=== PATIENT | male | born 1955 | race Caucasian/White ===

== ENCOUNTER 2023-10-30 08:58 | Outpatient (CLI) | payer MEDICARE, BC, SELFPAY | END 2023-10-30 08:59 | disposition home or self-care (01) | PROVIDERS: PCP Family Medicine; Visit Provider Family Medicine | DX: E78.2 Mixed hyperlipidemia (principal); N40.0 Benign prostatic hyperplasia without lower urinary tract symptoms; M17.12 Unilateral primary osteoarthritis, left knee; Z12.5 Encounter for screening for malignant neoplasm of prostate | CPT/HCPCS: 80048; 80061; 84460; G0103 ==

== ENCOUNTER 2024-06-23 08:18 | Outpatient (CLI) | payer MEDICARE, BC, SELFPAY ==
--- NOTE | 2024-06-23 09:00 | CRLHL7_ITS ---
For Patients: As a result of the Century Cures Act, medical imaging exams and procedure reports are released immediately into your electronic medical record. You may view this report before your referring provider. If you have questions, please contact your health care provider. INDICATION: UTI, HEMATURIA TECHNIQUE: CT abdomen and pelvis urogram without and with 100 cc Isovue 370 IV contrast. Contrast images were obtained in the nephrographic and delayed phases. COMPARISON: None. FINDINGS: KIDNEYS: The unenhanced images demonstrate no kidney or ureteral stones. The kidneys are normal in caliber and demonstrate normal uptake and excretion of IV contrast. No masses. The renal collecting systems and ureters are symmetrical, normal in caliber, and without evidence of mass or filling defect. URINARY BLADDER: Bladder wall is mildly trabeculated. Prostate gland appears to be present with lobular mass effect upon the inferior bladder along with calcifications. No bladder stones. OTHER: GI tract is normal in caliber and appearance. Multiple sub cm cysts are present within the liver. No calcified gallstones. Spleen, pancreas, and adrenal glands are normal. No mass or adenopathy. Facet degeneration lower lumbar spine. IMPRESSION: 1. No renal, ureteral or bladder stone. 2. Mild bladder wall trabeculation. Prostate gland is present with lobular mass effect upon the inferior bladder. Please note that all CT scans at this facility use dose modulation, iterative reconstruction, and/or weight-based dosing when appropriate to reduce radiation dose to as low as reasonably achievable. Dictated by Ramesh Pride MD @ 06/23/2024 10:48:42 AM (Electronically Signed)
[2024-06-23 09:02] LABS: Creatinine* 0.8 mg/dL (0.5-1.5); Estimated Glomerular Filt Rate 96 ml/min
== END 2024-06-23 08:19 | disposition home or self-care (01) ==
LOC: CT 08:22
PROVIDERS: PCP Family Medicine; Visit Provider Urology
DX: N39.0 Urinary tract infection, site not specified (principal); R31.9 Hematuria, unspecified; R19.09 Other intra-abdominal and pelvic swelling, mass and lump
CPT/HCPCS: 36415; 74178; 82565; Q9967

== ENCOUNTER 2024-10-31 09:33 | Outpatient (CLI) | payer MEDICARE, BC, SELFPAY | END 2024-10-31 09:34 | disposition home or self-care (01) | PROVIDERS: PCP Family Medicine; Visit Provider Family Medicine | DX: E78.2 Mixed hyperlipidemia (principal); Z12.5 Encounter for screening for malignant neoplasm of prostate | CPT/HCPCS: 80048; 80061; 84460; G0103 ==

== ENCOUNTER 2025-02-03 10:18 | Outpatient (CLI) | payer MEDICARE, BC, SELFPAY | END 2025-02-03 10:19 | disposition home or self-care (01) | PROVIDERS: PCP Family Medicine; Visit Provider Family Medicine | DX: Z01.818 Encounter for other preprocedural examination (principal) | CPT/HCPCS: 80048; 85025; 87081 ==